=== PATIENT | female | born 1950 | race Caucasian/White ===

== ENCOUNTER 2017-02-08 16:49 | Emergency (ER) | payer MEDICAID, MEDICARE ==
[~2017-02-08] VITALS: Ht 157.5 cm; Wt 38.1 kg
[~2017-02-08 16:49] MED LIST: BECL8.7A7 INH; CYAN10005 PO; FLUT16SP2 NS; LEVO750T26 PO; LORA-445 PO; MONT10TA6 PO; OXYB5TAB7 PO; OXYC5TAB3 PO
[2017-02-08 17:12] VITALS: BP 134/89
[2017-02-08] MEDS ORDERED: METHOCARBAMOL 750 MG TABLET ONE (18:29)
[2017-02-08] MEDS ORDERED: METHOCARBAMOL 750 MG TABLET PO ONE (18:30)
== END 2017-02-08 19:18 | disposition home or self-care (01) ==
LOC: ED 18:45
DX: M54.5 Low back pain (principal); J44.9 Chronic obstructive pulmonary disease, unspecified; Z88.0 Allergy status to penicillin; F17.200 Nicotine dependence, unspecified, uncomplicated
CPT/HCPCS: 99283

== ENCOUNTER 2018-08-22 11:19 | Emergency (ER) | payer MEDICARE, MEDICAID ==
[~2018-08-22] VITALS: Ht 157.5 cm; Wt 41.7 kg
[~2018-08-22 11:19] MED LIST changes: +GABA300C10 PO; +LEVETIRACETAM; +symbicort
[2018-08-22 11:30] VITALS: BP 105/50
--- NOTE | 2018-08-22 12:25 | NUR ---
CARDIAC 5 LEAD, B/P, SPO2 MONITOR IN PLACE
[2018-08-22 12:48] LABS: BASOPHILS # (AUTO) 0.02 x10^3/uL (0-0.1); BASOPHILS % (AUTO) 0 % (0-1); EOSINOPHILS # (AUTO) 0.04 x10^3/uL (0-0.4); EOSINOPHILS % (AUTO) 1 % (1-7); LYMPHOCYTES # (AUTO) 1.72 x10^3/uL (1-3.4); LYMPHOCYTES % (AUTO) 30 % (22-44); MD NO; MEAN CORPUSCULAR HEMOGLOBIN 29.9 pg (27.0-34.8); MEAN CORPUSCULAR HGB CONC 33.2 g/dL (32.4-35.8); MEAN PLATELET VOLUME 8.3 fL (7.4-10.4); MONOCYTES % (AUTO) 5 % (2-9); NEUTROPHILS # (AUTO) 3.61 x10^3/uL (1.8-6.8); NEUTROPHILS % (AUTO) 64 % (42-75); PLATELET COUNT 309 x10^3/uL (130-400); RED BLOOD COUNT 4.36 x10^6/uL (3.82-5.3); RED CELL DISTRIBUTION WIDTH 14.4 % (9.6-15.2)
[2018-08-22 12:59] LABS: ALBUMIN 3.6 g/dL (3.4-5.0); ANION GAP 3 mmol/L (5-15); CALCIUM 8.7 mg/dL (8.5-10.1); CHLORIDE 110 mmol/L (98-107); CREATININE 0.57 mg/dL (0.55-1.02)
[2018-08-22 13:09] LABS: FREE T4 (FREE THYROXINE) 0.94 ng/dL (0.76-1.46)
== END 2018-08-22 14:26 | disposition home or self-care (01) ==
LOC: ED 14:15
DX: R42 Dizziness and giddiness (principal); E16.2 Hypoglycemia, unspecified; E07.9 Disorder of thyroid, unspecified; J44.9 Chronic obstructive pulmonary disease, unspecified; Z87.01 Personal history of pneumonia (recurrent)
CPT/HCPCS: 36415; 80048; 82040; 84439; 84443; 85025; 93005; 99284